=== PATIENT | male | born 2000 | race Caucasian/White ===

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

== ENCOUNTER 2022-04-18 18:07 | Emergency (ER) | payer OTHER ==
[2022-04-18 18:37] VITALS: BP 121/68; RESP 18; TEMP 97.9; BMI 35.5
[2022-04-18] MEDS ORDERED: DIPHTH,PERTUSS(ACELL),TET 0.5 ML DISP.SYRIN IM ONE ×2 (19:11→19:37)
[2022-04-18] MEDS ORDERED: ACETAMINOPHEN 500 MG TABLET (FP) PO ONE (19:30)
[2022-04-18] MEDS ORDERED: ACETAMINOPHEN 500 MG TABLET (FP) ONE (19:37)
[2022-04-18 19:54] VITALS: PULSE 88
== END 2022-04-18 19:54 | disposition home or self-care (01) ==
LOC: JER 18:07 → JERFT 18:07
PROC: 3E0234Z Introduction of Serum, Toxoid and Vaccine into Muscle, Percutaneous Approach (ICD-10-PCS; principal; 2022-04-18)
DX: S61.210A Laceration without foreign body of right index finger without damage to nail, initial encounter (principal); W26.8XXA Contact with other sharp object(s), not elsewhere classified, initial encounter
CPT/HCPCS: 90471; 90715; 99284-25

== ENCOUNTER 2023-02-03 08:06 | Emergency (ER) | payer OTHER ==
[2023-02-03 08:11] VITALS: RESP 18; BMI 33.9
[2023-02-03] MEDS ORDERED: MAG HYDROX/AL HYDROX/SIMETH 30 ML UNIT-DOSE CUP PO ONE (08:51)
[2023-02-03] MEDS ORDERED: ACETAMINOPHEN 325 MG TABLET (FP) PO ONE (08:51)
[2023-02-03] MEDS ORDERED: FAMOTIDINE 20 MG TABLET PO ONE (08:51)
[2023-02-03] MEDS ORDERED: ACETAMINOPHEN 325 MG TABLET (FP) ONE (09:08)
[2023-02-03] MEDS ORDERED: FAMOTIDINE 20 MG TABLET ONE (09:08)
[2023-02-03] MEDS ORDERED: MAG HYDROX/AL HYDROX/SIMETH 30 ML UNIT-DOSE CUP ONE (09:08)
[2023-02-03 11:51] VITALS: BP 120/58; PULSE 77; TEMP 98.2
== END 2023-02-03 11:42 | disposition home or self-care (01) ==
LOC: JER 08:06
DX: R10.12 Left upper quadrant pain (principal); R04.2 Hemoptysis
CPT/HCPCS: 71046-TC-FY; 99283-25

== ENCOUNTER 2023-11-18 04:29 | Day surgery (SDC) | payer OTHER ==
[2023-11-11 15:48] VITALS: BMI 31.3
[2023-11-18 09:38] VITALS: TEMP 97.9
[2023-11-18 09:39] VITALS: RESP 16
[2023-11-18 09:57] VITALS: BP 117/74; PULSE 52
== END 2023-11-18 10:25 | disposition home or self-care (01) ==
LOC: JASU-ENDO 04:29
PROVIDERS: ATTEND Internal Medicine Gastroenterology
PROC: 0DB68ZX Excision of Stomach, Via Natural or Artificial Opening Endoscopic, Diagnostic (ICD-10-PCS; 2023-11-18)
PROC: 0DB98ZX Excision of Duodenum, Via Natural or Artificial Opening Endoscopic, Diagnostic (ICD-10-PCS; principal; 2023-11-18 08:00)
DX: K29.50 Unspecified chronic gastritis without bleeding (principal); B96.81 Helicobacter pylori [H. pylori] as the cause of diseases classified elsewhere
CPT/HCPCS: 88305-TC; 88341-TC; 88342-TC

== ENCOUNTER 2023-12-20 23:31 | Emergency (ER) | payer OTHER ==
[2023-12-20 23:40] VITALS: RESP 16; BMI 32.4
[2023-12-21] MEDS ORDERED: ACETAMINOPHEN INJECTION 100 ML ONE (00:47)
[2023-12-21] MEDS: ACETAMINOPHEN 1000 MG/100 ML BAG IVPB ONE (00:58)
[2023-12-21] MEDS: SODIUM CHLORIDE 0.9% 500 ML INFUS.BAG IV ONE (00:58)
[2023-12-21 01:09] LABS: BASO % 0.2 % (0-2.0); EOS % 0.1 % (0-4.5); HEMATOCRIT 41.4 % (35.4-49); HEMOGLOBIN 14.4 GM/dL (11.7-16.9); LYMPH % 9.6 % (8-40); MCH 28.2 pg (25.7-33.7); MCHC 34.8 g/dl (32.0-35.9); MEAN CELL VOLUME 80.9 fl (80-96); MEAN PLT VOLUME 8.1 fl (7.5-11.1); MONO % 9.7 % (3.8-10.2); NEUT % 80.4 % (42.8-82.8); PLATELET COUNT 227 10^3/uL (134-434); RBC 5.11 M/mm3 (4.00-5.60); RDW 13.6 % (11.9-15.9); WHITE BLOOD COUNT 14.1 K/mm3 (4.0-10.0)
[2023-12-21 01:26] LABS: INR 1.26 (0.83-1.09); PROTHROMBIN TIME (PATIENT) 14.1 SEC (9.7-13.0)
[2023-12-21 01:32] LABS: POTASSIUM 3.5 mmol/L (3.5-5.1)
[2023-12-21 01:34] LABS: BLOOD UREA NITROGEN 8.5 mg/dL (7-18); CALCIUM 9.6 mg/dL (8.5-10.1)
[2023-12-21 01:37] VITALS: TEMP 98.7
[2023-12-21 01:38] LABS: CREATININE 0.9 mg/dL (0.55-1.3)
[2023-12-21 01:39] LABS: BILIRUBIN,TOTAL 0.8 mg/dL (0.2-1); TOT PROT 7.8 g/dl (6.4-8.2)
[2023-12-21 02:20] VITALS: BP 116/78; PULSE 90
== END 2023-12-21 03:00 | disposition home or self-care (01) ==
LOC: JER 23:31
PROC: 3E033NZ Introduction of Analgesics, Hypnotics, Sedatives into Peripheral Vein, Percutaneous Approach (ICD-10-PCS; principal; 2023-12-21)
DX: R07.1 Chest pain on breathing (principal)
CPT/HCPCS: 36415; 71046-TC-FY; 80053; 83690; 84484; 85025; 85379; 85610; 85730; 93005; 93010; 96374; 99284-25; J0131

== ENCOUNTER 2024-06-01 22:16 | Emergency (ER) | payer OTHER ==
[2024-06-01 22:40] VITALS: BP 110/67; PULSE 79; RESP 18; TEMP 98.3; BMI 29.9
== END 2024-06-02 00:32 | disposition home or self-care (01) ==
LOC: JER 22:16
DX: H92.01 Otalgia, right ear (principal)
CPT/HCPCS: 99282-25